=== PATIENT | male | born 1940 | race Caucasian/White ===

== ENCOUNTER 2020-01-16 20:35 | Emergency (ER) | payer MEDICARE, BC ==
--- NOTE | 2020-01-16 21:24 | EDM.PDOC ---
ED HPI GENERAL MEDICAL PROBLEM - General Chief Complaint: General Stated Complaint: HEADACHE Time Seen by Provider: 01/16/20 20:43 Source of Information: Reports: Patient, Other (friend/roommate) History Limitations: Reports: Altered Mental Status - History of Present Illness INITIAL COMMENTS - FREE TEXT/NARRATIVE: Patient presents with headache, confusion and weakness on left side. His roommate called the ambulance with this report. Patient tells me he started having a pain from right shoulder up back of head to behind right ear that lasted about 10 minutes but is resolved now. Roommate tells us that patient has had headache intermittently for over a month but that at 1600 today he had a severe headache and onset of confusion and left side not working right. On arrival to ER he seemed to be leaning to left and not cooperating with exam for left hand squeeze. Right Headache Pain Score (Numeric/FACES): 3 - Related Data Allergies Allergy/AdvReac Type Severity Reaction Status Date / Time No Known Drug Allergies Allergy Cannot Verified 01/16/20 21:12 Remember Home Meds: Home Meds Aspirin [Aspirin EC] 81 mg PO DAILY 01/16/20 [History] Cyanocobalamin (Vitamin B12) [Vitamin B13] 500 mcg PO DAILY 01/16/20 [History] Insulin Degludec [Tresiba] 33 unit SQ QPM 01/16/20 [History] Naproxen Sodium [Aleve] 220 mg PO DAILY 01/16/20 [History] Sertraline [Zoloft] 50 mg PO DAILY 01/16/20 [History] Simvastatin 40 mg PO BEDTIME 01/16/20 [History] lisinopriL [Lisinopril] 2.5 mg PO DAILY 01/16/20 [History] metFORMIN HCl [Metformin HCl] 1,000 mg PO BID 01/16/20 [History] ED ROS GENERAL - Review of Systems Review Of Systems: See Below (poor historian with confusion currently) Constitutional: Denies: Fever, Weakness Respiratory: Denies: Shortness of Breath, Cough Cardiovascular: Denies: Chest Pain GI/Abdominal: Reports: Vomiting (with the severe headache). Denies: Abdominal Pain : Denies: Dysuria, Flank Pain Musculoskeletal: Reports: Neck Pain, Shoulder Pain Neurological: Reports: Confusion, Headache. Denies: Trouble Speaking Psychiatric: Denies: Agitation, Anxiety ED EXAM, GENERAL - Physical Exam Exam: See Below Exam Limited By: Altered Mental Status (wasn't understanding or aware of some requests during exam) General Appearance: Alert, WD/WN, No Apparent Distress Eye Exam: Bilateral Eye: EOMI, PERRL, Vision Changes (cannot see anything left of midline bilat) Ears: Normal External Exam, Hearing Grossly Normal Nose: Normal Inspection, No Blood Throat/Mouth: Normal Inspection, Normal Lips, Normal Voice, No Airway Compromise Head: Atraumatic, Normocephalic Neck: Normal Inspection, Full Range of Motion Respiratory/Chest: No Respiratory Distress, Lungs Clear, Normal Breath Sounds, No Accessory Muscle Use Cardiovascular: Regular Rate, Rhythm, No Murmur GI/Abdominal: Normal Bowel Sounds, Soft, Non-Tender, No Organomegaly, No Distention Back Exam: Normal Inspection, Full Range of Motion. No: CVA Tenderness (L), CVA Tenderness (R) Extremities: Normal Inspection, Normal Range of Motion, Other (advertising manager squeeze was symmetric but it was difficult to get patient to squeeze at all with left hand because he couldn't see or feel me put my fingers in that hand, just the right; at that time I wasn't yet aware of the sight and sensation deficit on the left.) Neurological: Alert, Disoriented (to time), Sensory/Motor Deficit (cannot sense touch over much of left side of body, especially left cheek, neck and shoulder; it seems to improve in distal arm and leg; NIH stroke scale 10) Psychiatric: Normal Affect, Normal Mood Skin Exam: Warm, Dry, Intact, Normal Color, No Rash Course - Vital Signs Last Recorded V/S: Last Vital Signs Temp 99.1 F 01/16/20 21:16 Pulse 85 01/16/20 21:16 Resp 18 01/16/20 21:16 BP 126/61 01/16/20 21:16 Pulse Ox 97 01/16/20 21:16 - Orders/Labs/Meds Orders: Active Orders 24 hr Category Date Time Status Head wo Cont [CT] Stat Exams 01/16/20 21:19 Ordered Labs: Laboratory Tests 01/16/20 01/16/20 01/16/20 Range/Units 21:20 21:20 21:20 WBC 12.40 H (5.00-10.00) 10^3/uL RBC 4.13 L (4.50-6.00) 10^6/uL Hgb 12.4 L (13.0-17.0) g/dL Hct 37.3 L (40.0-52.0) % MCV 90.3 (82.0-92.0) fL MCH 30.0 (27.0-31.0) pg MCHC 33.2 (32.0-36.0) g/dL RDW 12.9 (11.5-14.5) % Plt Count 207 (150-400) 10^3/uL MPV 9.9 (7.4-10.4) fL Immature Gran % (Auto) 0.4 (0.0-5.0) % Neut % (Auto) 88.3 H (50.0-70.0) % Lymph % (Auto) 7.4 L (20.0-40.0) % [place] % (Auto) 3.1 (2.0-8.0) % Eos % (Auto) 0.6 L (1.0-3.0) % Baso % (Auto) 0.2 (0.0-1.0) % Neut # (Auto) 10.93 H (2.50-7.00) 10^3/uL Lymph # (Auto) 0.92 L (1.00-4.00) 10^3/uL [place] # (Auto) 0.39 (0.10-0.80) 10^3/uL Eos # (Auto) 0.08 L (0.10-0.30) 10^3/uL Baso # (Auto) 0.03 (0.00-0.10) 10^3/uL Immature Gran # (Auto) 0.05 (0.00-0.50) 10^3/uL PT 15.2 H (8.9-11.4) SEC INR 1.5 H (0.9-1.1) APTT 22.3 L (23.1-31.3) SEC Sodium (136-145) mmol/L Potassium (3.3-5.3) mmol/L Chloride (98-115) mmol/L Carbon Dioxide (21.0-32.0) mmol/L Anion Gap (5-15) mmol/L BUN (6-25) mg/dL Creatinine (0.51-1.17) mg/dL Est Cr Clr Drug Dosing mL/min Estimated GFR (MDRD) mL/min Glucose (75 - 99) mg/dL Calcium (8.7-10.3) mg/dL Total Bilirubin (0.2-1.0) mg/dL AST (15-37) U/L ALT (12-78) U/L Alkaline Phosphatase (46-116) IU/L Troponin I (0.00-0.070) ng/mL Total Protein (6.4-8.2) g/dL Albumin (3.00-4.80) g/dL Specimen Type Urinblad Urine Color Light yellow (YELLOW) Urine Appearance Clear (CLEAR) Urine pH 5.5 (5.0-9.0) Ur Specific [place] 1.020 (1.005-1.030) Urine Protein 30 H (NEGATIVE) mg/dL Urine Glucose (UA) Negative (NEGATIVE) mg/dL Urine Ketones Negative (NEGATIVE) mg/dL Urine Occult Blood Small H (NEGATIVE) Urine Nitrite Negative (NEGATIVE) Urine Bilirubin Negative (NEGATIVE) Urine Urobilinogen 0.2 (0.2-1.0) E.U./dL Ur Leukocyte Esterase Negative (NEGATIVE) Urine RBC 5-10 H (0-5) /HPF Urine WBC 0-5 (0-5) /HPF Ur Epithelial Cells Occasional /LPF Urine Bacteria Few (NONE TO FEW) /HPF /03/29 Range/Units 21:20 WBC (5.00-10.00) 10^3/uL RBC (4.50-6.00) 10^6/uL Hgb (13.0-17.0) g/dL Hct (40.0-52.0) % MCV (82.0-92.0) fL MCH (27.0-31.0) pg MCHC (32.0-36.0) g/dL RDW (11.5-14.5) % Plt Count (150-400) 10^3/uL MPV (7.4-10.4) fL Immature Gran % (Auto) (0.0-5.0) % Neut % (Auto) (50.0-70.0) % Lymph % (Auto) (20.0-40.0) % [place] % (Auto) (2.0-8.0) % Eos % (Auto) (1.0-3.0) % Baso % (Auto) (0.0-1.0) % Neut # (Auto) (2.50-7.00) 10^3/uL Lymph # (Auto) (1.00-4.00) 10^3/uL [place] # (Auto) (0.10-0.80) 10^3/uL Eos # (Auto) (0.10-0.30) 10^3/uL Baso # (Auto) (0.00-0.10) 10^3/uL Immature Gran # (Auto) (0.00-0.50) 10^3/uL PT (8.9-11.4) SEC INR (0.9-1.1) APTT (23.1-31.3) SEC Sodium 141 (136-145) mmol/L Potassium 4.7 (3.3-5.3) mmol/L Chloride 105 (98-115) mmol/L Carbon Dioxide 22.5 (21.0-32.0) mmol/L Anion Gap 18.2 H (5-15) mmol/L BUN 22 (6-25) mg/dL Creatinine 1.15 (0.51-1.17) mg/dL Est Cr Clr Drug Dosing 55.54 mL/min Estimated GFR (MDRD) > 60 mL/min Glucose 155 H (75 - 99) mg/dL Calcium 8.9 (8.7-10.3) mg/dL Total Bilirubin 0.3 (0.2-1.0) mg/dL AST 15 (15-37) U/L ALT 19 (12-78) U/L Alkaline Phosphatase 56 (46-116) IU/L Troponin I 0.17 H* (0.00-0.070) ng/mL Total Protein 6.8 (6.4-8.2) g/dL Albumin 3.67 (3.00-4.80) g/dL Specimen Type Urine Color (YELLOW) Urine Appearance (CLEAR) Urine pH (5.0-9.0) Ur Specific [place] (1.005-1.030) Urine Protein (NEGATIVE) mg/dL Urine Glucose (UA) (NEGATIVE) mg/dL Urine Ketones (NEGATIVE) mg/dL Urine Occult Blood (NEGATIVE) Urine Nitrite (NEGATIVE) Urine Bilirubin (NEGATIVE) Urine Urobilinogen (0.2-1.0) E.U./dL Ur Leukocyte Esterase (NEGATIVE) Urine RBC (0-5) /HPF Urine WBC (0-5) /HPF Ur Epithelial Cells /LPF Urine Bacteria (NONE TO FEW) /HPF - Re-Assessments/Exams Free Text/Narrative Re-Assessment/Exam: 01/16/20 21:38 [facility] soon as I was confident of definite deficit but before head CT was obtained. NIH scale is 10 and patient couldn't see the left side of each page on the scale. This was consistent with my exam. Patient still isn't aware of any change in his vision. Dr. Khan, neurologist, accepted patient and initially wanted us to give TPA after he got out of scanner but when he realized we have only CT and no MRI, and that patient is out of 4.5 hour window he instructed us to send to him right out of scanner without TPA. CT is done, patient is one the way, and we are pushing to [facility]. Patient stable throughout ER course. Departure - Departure Time of Disposition: 21:38 Disposition: DC/Tfer to Acute Hospital 02 Condition: Good Clinical Impression: Stroke - Discharge Information Referrals: Missy Barbosa MD [Primary Care Provider] - Forms: ED Department Discharge Sepsis Event Note - Focused Exam Vital Signs: Vital Signs Temp Pulse Resp BP Pulse Ox 01/16/20 21:16 99.1 F 85 18 126/61 97 Date Exam was Performed: 01/16/20 Time Exam was Performed: 22:25 - My Orders Last 24 Hours: My Active Orders 01/16/20 21:19 Head wo Cont [CT] Stat - Assessment/Plan Last 24 Hours: My Active Orders 01/16/20 21:19 Head wo Cont [CT] Stat
[2020-01-16 22:00] LABS: ANION GAP 18.2 mmol/L (5-15); CHLORIDE,CL 105 mmol/L (98-115); SODIUM,NA 141 mmol/L (136-145)
[2020-01-16 22:18] LABS: PTT,PARTIAL THROMBOPLSTIN TIME 22.3 SEC (23.1-31.3)
--- NOTE | 2020-01-17 07:51 | CT ---
[id number] CT/CT Head WO IV EXAM: CT Head WO IV CLINICAL DATA: STROKE COMPARISON STUDY: None FINDINGS: No intracranial hemorrhage, extra-axial fluid collection, mass, or acute ischemia. No hydrocephalus. Mild changes of chronic white matter disease. 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 Paranasal sinuses and mastoid air cells are clear. IMPRESSION: No acute intracranial findings. Jarrell Morales MD 01/17/20 0750 Thank you for allowing us to participate in the care of your patient.
== END 2020-01-16 21:35 ==
LOC: KA.ED 20:35
DX: I63.9 Cerebral infarction, unspecified (principal); Z79.82 Long term (current) use of aspirin; Z79.899 Other long term (current) drug therapy
CPT/HCPCS: 36415; 70450; 80053; 81001; 84484; 85025; 85610; 85730; 99284; 99285-25